=== PATIENT | female | born 1935 | race Hispanic/Latino ===

== ENCOUNTER 2017-10-09 08:14 | Day surgery (SDC) | payer MEDICARE ==
[2017-10-07 13:16] VITALS: BMI 25.6
[2017-10-09 09:50] LABS: BASO # 0.03 K/mm3 (0.0-2.0); BASO % 0.4 % (0.0-3.0); EOS # 0.7 (0.0-0.7); EOS % 9.2 % (1.5-5.0); GRAN # 4.55 (1.4-6.5); GRAN % 58.4 % (50.0-68.0); HEMATOCRIT 40.2 % (36.0-48.0); LYMPH # 1.8 (1.2-3.4); MEAN CELL VOLUME 91.2 fl (80.0-105.0); MEAN CORPUSCULAR HEMOGLOBIN 30.8 pg (25.0-35.0); MEAN CORPUSCULAR HGB CONC 33.8 g/dl (31.0-37.0); MEAN PLATELET VOLUME 10.3 fl (7.0-11.0); MONO # 0.7 (0.1-0.6); RED CELL DISTRIBUTION WIDTH 13.2 % (11.5-14.5); WHITE BLOOD COUNT 7.8 10^3/ul (4.5-11.0)
[2017-10-09 09:53] LABS: CALCIUM 9.9 mg/dL (8.4-10.5); POTASSIUM 3.7 mmol/L (3.6-5.0)
[2017-10-09] MEDS ORDERED: Liquid Adhesive TOP ONE (10:08)
[2017-10-09] MEDS ORDERED: Lidocaine 1% Inj (20ml) ONE (10:09)
[2017-10-09] MEDS ORDERED: Propofol 10 mg/ml Inj (20 ML) ONE (10:21)
[2017-10-09] MEDS ORDERED: Midazolam 2 MG/2 ML VIAL ONE (10:21)
[2017-10-09] MEDS ORDERED: ePHEDrine 50 mg/ml Inj ONE (10:52)
--- NOTE | 2017-10-09 11:29 | PCM.SURG1 ---
Surgeon's Initial Post Op Note - Surgeon's Notes Surgeon: Dr. Sims Bundle Sorter: Dr. Remy PGY1 Type of Anesthesia: General IV Pre-Operative Diagnosis: Chronic headaches Operative Findings: see op note Post-Operative Diagnosis: as above Operation Performed: Right temporal artery biopsy Specimen/Specimens Removed: temporal artery Estimated Blood Loss: EBL {In ML}: 3 Blood Products Given: N/A Drains Used: No Drains Post-Op Condition: Good Date of Surgery/Procedure: 10/09/17 Time of Surgery/Procedure: 11:28
[2017-10-09] MEDS ORDERED: Oxycodone/Acetaminophen 5/325 mg Tab PO ONE ×2 (11:30→12:45)
[2017-10-09 11:45] VITALS: TEMP 97.8
[2017-10-09 12:01] VITALS: O2SAT 96
[2017-10-09 12:15] VITALS: BP 132/88; PULSE 83; RESP 18
[2017-10-09] MEDS ORDERED: Oxycodone/Acetaminophen 5/325 mg Tab ONE (12:45)
--- NOTE | 2017-10-09 13:30 | OP ---
PROCEDURE DATE: 10/09/2017 PREOPERATIVE DIAGNOSIS: Right temporal headaches, rule out temporal arteritis. POSTOPERATIVE DIAGNOSIS: Right temporal headaches, rule out temporal arteritis. PROCEDURE PERFORMED: Right temporal artery biopsy. SURGEON: Wes Sims MD CUSTOMER SERVICER: Dr. Remy. ANESTHESIOLOGIST: Dr. Austin. TYPE OF ANESTHESIA: MAC and local anesthesia. ESTIMATED BLOOD LOSS: Minimal. SPECIMEN: Right temporal artery. INDICATIONS: The patient is an 82-year-old female with a history of recent onset headache on the right side of the 0:58 catholic for which she has seen neurologist and the suspicion for temporal arteritis was entertained. The patient now came in to have a biopsy of the right temporal artery noted to rule out temporal arteritis. DESCRIPTION OF PROCEDURE: The patient was brought to the operating room and placed on the operating table in the supine position. The patient was connected to EKG, blood pressure and pulse oximetry monitors. The patient then was prepped and draped in the usual sterile fashion. First using lidocaine mixed with Marcaine, the area of the right temporal artery was infiltrated and the patient received MAC anesthesia. Prior to that, a standard time-out procedure took place and everybody in the room agreed to this patient identity, diagnosis and the procedure to be performed. Using #15 blade, an incision was made directly overlying the course of the temporal artery for about 3 cm. The incision was carried through the subcutaneous fat down to the artery and the artery was carefully dissected out from the underlying tissues. All these small branches were either ligated or cauterized. The artery was then clipped distally and proximally making about 3 cm piece available for biopsy. This was resected and sent as a biopsy specimen. The ends of the temporal artery were now ligated using 3-0 Vicryl on both proximal and distal end. The wound was copiously irrigated. There was excellent hemostasis within the wound. The wound was closed in layers using 3-0 Vicryl for deep dermal layers and 4-0 Monocryl for skin. A sterile Dermabond dressing was applied to the wound. The patient was awakened, extubated, and transferred to the recovery room for further observation. Wes Sims MD
== END 2017-10-09 13:35 | disposition home or self-care (01) ==
LOC: SDS 08:14
PROVIDERS: ATTEND General Practice
DX: R51 Headache (principal)
CPT/HCPCS: 36415; 37609; 80048; 85025; 88305; J2001; J2250; J2405; J2704; J3010; J7120